=== PATIENT | male | born 1950 | race Two or more races ===

== ENCOUNTER 2020-09-19 17:10 | Emergency (ER) | payer OTHER ==
[~2020-09-19] VITALS: Ht 167.6 cm; Wt 66.7 kg
[2020-09-19 17:10] VITALS: BP 150/83
== END 2020-09-19 20:07 | disposition home or self-care (01) ==
LOC: ER 17:10
DX: S82.255A Nondisplaced comminuted fracture of shaft of left tibia, initial encounter for closed fracture (principal); E11.9 Type 2 diabetes mellitus without complications; I10 Essential (primary) hypertension; X58.XXXA Exposure to other specified factors, initial encounter; Y93.89 Activity, other specified; Y92.89 Other specified places as the place of occurrence of the external cause; Y99.8 Other external cause status
CPT/HCPCS: 73610